=== PATIENT | female | born 1965 | race Caucasian/White ===

== ENCOUNTER 2022-01-20 12:46 | Emergency (ER) | payer MEDICAID ==
[~2022-01-20] VITALS: Ht 142.2 cm; Wt 95.3 kg
[2022-01-20 13:01] VITALS: BP 161/92
--- NOTE | 2022-01-20 13:03 | NUR ---
DR SALINAS AT THE BEDSIDE
--- NOTE | 2022-01-20 13:05 | NUR ---
BIBFAMILY C/O RIGHT RIB PAIN X2DAYS S/P SLIP AND FALL, DENIES HITTING HEAD DENIES LOC, LANDED ON BACK. RATES PAIN /. WILL CONTINUE TO MONITOR THE PATIENT.
[2022-01-20] MEDS ORDERED: IBUP-1953 PO (13:32)
--- NOTE | 2022-01-20 13:49 | NUR ---
Patient discharged to home in stable condition. Written and verbal after care instructions given. Patient verbalizes understanding of instruction.
== END 2022-01-20 13:50 | disposition home or self-care (01) ==
LOC: ER 12:51
DX: R07.81 Pleurodynia (principal); I10 Essential (primary) hypertension; W01.0XXA Fall on same level from slipping, tripping and stumbling without subsequent striking against object, initial encounter; Y93.89 Activity, other specified; Y92.89 Other specified places as the place of occurrence of the external cause; Y99.8 Other external cause status
CPT/HCPCS: 71100-TC